=== PATIENT | male | born 1935 | race Caucasian/White ===

== ENCOUNTER 2017-06-06 10:40 | Inpatient (IN) | payer MEDICARE ==
[~2017-06-06] VITALS: Ht 165.1 cm; Wt 66.0 kg
[~2017-06-06 10:40] MED LIST: ALEVE220 M1 PO; ASMANEX 120220 MCG IN; AUGMENTIN875TAB PO; BREO ELLIPTA 101 INH PO; CENTRUM PO; CENTRUM SILVER; COMBIVENT; COMBIVENT RESPIMAT IN; DILTIAZEM180 M1 PO; DILTIAZEM240 MG PO; DILTIAZEM90 M1 PO; DUONEB IN; FLUARIX QUADRIV1 INJ IM; FLUZONE QUADRIV1 IN3 IM; FLUZONE SPLT1 M1 IM; IPRATROPIUM BROMIDE/; OSTEO BI-FLE; OSTEO BI-FLEX R1 TAB PO; VIAGRA100 MG PO
[2017-06-06 11:40] LABS: HEMATOCRIT 46.7 % (39.0-50.0); HEMOGLOBIN 15.4 g/dl (14.0-18.0); IMMATURE GRANULOCYTES 0.4 % (0.0-1.0); MEAN CELL VOLUME 94.5 fL CALC (80.0-100.0); MEAN CORPUSCULAR HGB 31.2 pG CALC (26.0-32.0); NEUT# 8.8 thou/uL (1.82-7.42); RED BLOOD COUNT 4.94 mill/uL (4.70-6.10); RED CELL DISTRI WIDTH 13.3 % (11.5-15.5)
[2017-06-06 12:05] LABS: PROTHROMBIN TIME 10.8 SECONDS (9.0-12.5)
[2017-06-06 12:07] LABS: ALBUMIN 4.7 g/dL (3.2-5.0); ALKALINE PHOSPHATASE 56 u/l (38-126); ANION GAP 18 (6-22 (CALC)); BILIRUBIN, TOTAL 0.7 mg/dL (0.0-1.4); BUN 22 mg/dL (8-23); BUN/CREATININE RATIO 19 (12-20 (CALC)); CALCIUM 9.7 mg/dL (8.4-10.2); CARBON DIOXIDE 30 mmol/l (22-30); CHLORIDE 97 mmol/l (95-108); CREATININE 1.2 mg/dL (0.7-1.3); GFR 58 ML/MIN (>=60 (CALC)); GFR FOR AFR.AMER. > 60 ML/MIN (>=60 (CALC)); GLUCOSE 139 mg/dL (82-115); POTASSIUM 4.5 mmol/l (3.5-5.1); SGOT/AST 33 u/l (19-48); SGPT/ALT 31 u/l (11-66); SODIUM 140 mmol/l (137-146); TOTAL PROTEIN 7.7 g/dL (6.3-8.2)
[2017-06-06 12:19] LABS: MYOGLOBIN 168 ng/mL (0 - 121)
[2017-06-06 13:39] VITALS: BP 124/59
[2017-06-06] MEDS ORDERED: VENTOLIN HFA PO (14:10)
[2017-06-06] MEDS ORDERED: DILT-XR240 MG PO (14:11)
[2017-06-06 15:38] VITALS: BP 113/87
[2017-06-06 19:25] VITALS: BP 114/57
[2017-06-06 22:30] LABS: URINE BILIRUBIN - DIPSTICK NEGATIVE (NEGATIVE); URINE BLOOD DIPSTICK TRACE-LYSED (NEGATIVE); URINE CLARITY CLEAR; URINE COLOR YELLOW; URINE GLUCOSE - DIPSTICK NEGATIVE (NEGATIVE); URINE KETONE TRACE mg/dL (NEGATIVE); URINE LEUK ESTERASE NEGATIVE (Negative); URINE NITRITE - DIPSTICK NEGATIVE (Negative); URINE PROTEIN - DIPSTICK 100 mg/dL (NEG-TRACE); URINE SPECIFIC GRAVITY 1.025; URINE UROBILINOGEN - DIPSTICK 0.2 E.U./dL (0.2)
[2017-06-06 22:40] LABS: URINE RBC 0-2 RBC/hpf (0-5); URINE WBC 0-2 WBC/hpf (0-5)
[2017-06-06 23:36] VITALS: BP 113/60
[2017-06-07 01:27] VITALS: BP 137/74
[2017-06-07 04:28] VITALS: BP 145/71
[2017-06-07 06:09] LABS: HEMATOCRIT 42.9 % (39.0-50.0); MEAN CELL VOLUME 95.5 fL CALC (80.0-100.0); MEAN CORPUSCULAR HGB 31.2 pG CALC (26.0-32.0); MEAN CORPUSCULAR HGB CONC 32.6 g/L CALC (32.0-36.0); RED BLOOD COUNT 4.49 mill/uL (4.70-6.10); RED CELL DISTRI WIDTH 13.2 % (11.5-15.5)
[2017-06-07 06:18] LABS: ANION GAP 16 (6-22 (CALC)); BUN 24 mg/dL (8-23); BUN/CREATININE RATIO 25 (12-20 (CALC)); CALCIUM 9.3 mg/dL (8.4-10.2); CARBON DIOXIDE 30 mmol/l (22-30); CHLORIDE 103 mmol/l (95-108); GFR > 60 ML/MIN (>=60 (CALC)); GFR FOR AFR.AMER. > 60 ML/MIN (>=60 (CALC)); GLUCOSE 140 mg/dL (82-115); MAGNESIUM 2.1 mg/dL (1.6-2.3); SODIUM 144 mmol/l (137-146)
[2017-06-07 06:20] LABS: POTASSIUM 5.4 mmol/l (3.5-5.1)
[2017-06-07 07:30] VITALS: BP 142/61
[2017-06-07 12:55] VITALS: BP 133/59
[2017-06-07 16:40] VITALS: BP 132/62
[2017-06-08] VITALS (7 sets, daily range): BP systolic 129–154; BP diastolic 48–76
[2017-06-09] VITALS: BP 153/79
[2017-06-09 04:35] VITALS: BP 133/62
[2017-06-09 08:49] VITALS: BP 136/72
[2017-06-09 11:40] VITALS: BP 145/75
[2017-06-09 15:32] VITALS: BP 150/71
[2017-06-09 19:34] VITALS: BP 164/73
[2017-06-10] VITALS (8 sets, daily range): BP systolic 129–172; BP diastolic 60–87
[2017-06-10 05:44] LABS: HEMATOCRIT 43.1 % (39.0-50.0); HEMOGLOBIN 14.2 g/dl (14.0-18.0); IMMATURE GRANULOCYTES 1.7 % (0.0-1.0); MEAN CELL VOLUME 95.1 fL CALC (80.0-100.0); MEAN CORPUSCULAR HGB 31.3 pG CALC (26.0-32.0); MEAN CORPUSCULAR HGB CONC 32.9 g/L CALC (32.0-36.0); NEUT# 7.52 thou/uL (1.82-7.42); RED BLOOD COUNT 4.53 mill/uL (4.70-6.10); RED CELL DISTRI WIDTH 13.3 % (11.5-15.5)
[2017-06-10 05:56] LABS: ANION GAP 11 (6-22 (CALC)); BUN 42 mg/dL (8-23); BUN/CREATININE RATIO 41 (12-20 (CALC)); CALCIUM 9.5 mg/dL (8.4-10.2); CARBON DIOXIDE 32 mmol/l (22-30); CHLORIDE 105 mmol/l (95-108); GFR > 60 ML/MIN (>=60 (CALC)); GFR FOR AFR.AMER. > 60 ML/MIN (>=60 (CALC)); GLUCOSE 150 mg/dL (82-115); POTASSIUM 4.5 mmol/l (3.5-5.1); SODIUM 144 mmol/l (137-146)
[2017-06-11] VITALS (13 sets, daily range): BP systolic 130–190; BP diastolic 59–94
[2017-06-11 05:29] LABS: ANION GAP 11 (6-22 (CALC)); BUN 45 mg/dL (8-23); BUN/CREATININE RATIO 47 (12-20 (CALC)); CALCIUM 9.6 mg/dL (8.4-10.2); CARBON DIOXIDE 32 mmol/l (22-30); CHLORIDE 105 mmol/l (95-108); GFR > 60 ML/MIN (>=60 (CALC)); GFR FOR AFR.AMER. > 60 ML/MIN (>=60 (CALC)); GLUCOSE 163 mg/dL (82-115); MAGNESIUM 2.3 mg/dL (1.6-2.3); POTASSIUM 4.6 mmol/l (3.5-5.1); SODIUM 143 mmol/l (137-146)
[2017-06-11 05:34] LABS: HEMATOCRIT 42.8 % (39.0-50.0); HEMOGLOBIN 14.1 g/dl (14.0-18.0); IMMATURE GRANULOCYTES 2.9 % (0.0-1.0); MEAN CELL VOLUME 93.9 fL CALC (80.0-100.0); MEAN CORPUSCULAR HGB 30.9 pG CALC (26.0-32.0); MEAN CORPUSCULAR HGB CONC 32.9 g/L CALC (32.0-36.0); NEUT# 6.98 thou/uL (1.82-7.42); RED BLOOD COUNT 4.56 mill/uL (4.70-6.10); RED CELL DISTRI WIDTH 13.2 % (11.5-15.5)
[2017-06-11] MEDS ORDERED: ADLT ASA LOW81 MG PO (12:21)
[2017-06-11] MEDS ORDERED: IPRATROPIU0.5 MG/3 M IN (12:21)
[2017-06-11] MEDS ORDERED: ALPRAZOLAM0.25 MG PO (12:21)
[2017-06-11] MEDS ORDERED: Levaquin PO (12:21)
[2017-06-11] MEDS ORDERED: PREDNISONE10 MG PO (12:21)
[2017-06-12 05:30] VITALS: BP 168/85
[2017-06-12 05:50] LABS: HEMATOCRIT 42.8 % (39.0-50.0); HEMOGLOBIN 14.2 g/dl (14.0-18.0); IMMATURE GRANULOCYTES 3.9 % (0.0-1.0); MEAN CELL VOLUME 94.3 fL CALC (80.0-100.0); MEAN CORPUSCULAR HGB 31.3 pG CALC (26.0-32.0); MEAN CORPUSCULAR HGB CONC 33.2 g/L CALC (32.0-36.0); NEUT# 8.28 thou/uL (1.82-7.42); RED BLOOD COUNT 4.54 mill/uL (4.70-6.10); RED CELL DISTRI WIDTH 13.2 % (11.5-15.5)
[2017-06-12 06:01] LABS: BUN 47 mg/dL (8-23); BUN/CREATININE RATIO 51 (12-20 (CALC)); CALCIUM 9.6 mg/dL (8.4-10.2); CARBON DIOXIDE 32 mmol/l (22-30); CHLORIDE 104 mmol/l (95-108); CREATININE 0.9 mg/dL (0.7-1.3); GFR > 60 ML/MIN (>=60 (CALC)); GFR FOR AFR.AMER. > 60 ML/MIN (>=60 (CALC)); GLUCOSE 147 mg/dL (82-115); MAGNESIUM 2.3 mg/dL (1.6-2.3); SODIUM 143 mmol/l (137-146)
[2017-06-12 06:02] LABS: PROTHROMBIN TIME 10.7 SECONDS (9.0-12.5)
[2017-06-12 06:03] LABS: ANION GAP 12 (6-22 (CALC)); POTASSIUM 4.9 mmol/l (3.5-5.1)
[2017-06-12 07:25] VITALS: BP 161/75
[2017-06-12 07:33] VITALS: BP 170/72
[2017-06-12 11:34] VITALS: BP 151/71
[2017-06-12] MEDS ORDERED: ELIQUIS2.5 MG PO (11:48)
== END 2017-06-12 15:25 | DRG 190 ==
LOC: ED 10:40 → ED-I 12:26 → ED 12:56 → MS2 12:57
PROVIDERS: Emergency Medicine; Internal Medicine; Nurse Practitioner Family; ADMIT Internal Medicine; ATTEND Internal Medicine
DX: J44.1 Chronic obstructive pulmonary disease with (acute) exacerbation (principal); J96.21 Acute and chronic respiratory failure with hypoxia; J44.0 Chronic obstructive pulmonary disease with (acute) lower respiratory infection; J20.9 Acute bronchitis, unspecified; F03.90 Unspecified dementia, unspecified severity, without behavioral disturbance, psychotic disturbance, mood disturbance, and anxiety; I48.0 Paroxysmal atrial fibrillation; I10 Essential (primary) hypertension; F41.9 Anxiety disorder, unspecified; I25.10 Atherosclerotic heart disease of native coronary artery without angina pectoris; Z99.81 Dependence on supplemental oxygen; Z87.891 Personal history of nicotine dependence
CPT/HCPCS: J1160; J1650; J1956

== ENCOUNTER 2019-02-20 16:11 | Emergency (ER) | payer MEDICARE ==
[~2019-02-20] VITALS: Ht 165.1 cm; Wt 70.0 kg
[~2019-02-20 16:11] MED LIST changes: +ADLT ASA LOW81 MG PO; +ALPRAZOLAM0.25 MG PO; +DILT-XR240 MG PO; +ELIQUIS2.5 MG PO; +IPRATROPIU0.5 MG/3 M IN; +Levaquin PO; +PREDNISONE10 MG PO; +VENTOLIN HFA PO
[2019-02-20 17:06] VITALS: BP 138/63
== END 2019-02-20 17:12 | disposition home or self-care (01) ==
LOC: ED 16:11
PROC: 0HQLXZZ Repair Left Lower Leg Skin, External Approach (ICD-10-PCS; principal; 2019-02-20)
DX: S81.812A Laceration without foreign body, left lower leg, initial encounter (principal); W22.8XXA Striking against or struck by other objects, initial encounter; Y92.009 Unspecified place in unspecified non-institutional (private) residence as the place of occurrence of the external cause

== ENCOUNTER 2020-03-26 15:21 | Emergency (ER) | payer MEDICARE ==
[~2020-03-26] VITALS: Ht 165.1 cm; Wt 65.9 kg
[2020-03-26] MEDS ORDERED: ELIQUIS2.5 MG PO (15:57)
[2020-03-26] MEDS ORDERED: SPIRIVA RE2.5 MCG/AC IN (15:58)
[2020-03-26] MEDS ORDERED: VENTOLIN H108 MCG/AC IN (15:58)
[2020-03-26] MEDS ORDERED: KEFLEX500 M1 PO (17:02)
[2020-03-26 17:10] VITALS: BP 141/88
== END 2020-03-26 17:10 | disposition home or self-care (01) ==
LOC: ED 15:21
DX: S81.811A Laceration without foreign body, right lower leg, initial encounter (principal); W22.03XA Walked into furniture, initial encounter; Y93.9 Activity, unspecified; Y92.009 Unspecified place in unspecified non-institutional (private) residence as the place of occurrence of the external cause